=== PATIENT | male | born 1965 | race Two or more races ===

== ENCOUNTER 2019-05-17 18:47 | Inpatient (IN) | payer OTHER ==
[~2019-05-17] VITALS: Ht 175.3 cm; Wt 73.0 kg
[2019-05-17 19:06] VITALS: Ht 175.3 cm; Wt 73.0 kg
[2019-05-17 20:04] LABS: PLATELET COUNT 457 x10^3mcL (130-400); RED CELL DISTRIBUTION WIDTH 23.3 % (11.5-14.5)
[2019-05-17 20:27] LABS: BAND NEUTROPHIL 1 % (0-10); BASOPHIL 0 % (0-2); CALCIUM 7.8 mg/dL (8.5-10.1); CARBON DIOXIDE 29.2 mmol/L (21-32); CHLORIDE SERUM 107 mmol/L (98-107); CREATININE SERUM 0.8 mg/dL (0.7-1.3); GFR1 > 60 mL/min; GLUCOSE SERUM 103 mg/dL (74-106); MONOCYTE 2 % (0-7); POTASSIUM SERUM 3.5 mmol/L (3.5-5.1); SEGMENTED NEUTROPHILS 84 % (37-75); SODIUM SERUM 145 mmol/L (136-145); rbc morphology (normal/abnorm) ABNORMAL (NORMAL)
[2019-05-17 20:36] LABS: ALBUMIN 3.5 g/dL (3.4-5.0); ALKALINE PHOSPHATASE 65 U/L (46-116); ALT/SGPT 46 U/L (16-63); AST/SGOT 36 U/L (15-37); BILIRUBIN TOTAL 0.19 mg/dL (0.20-1.00); TOTAL PROTEIN, SERUM 7.3 g/dL (6.4-8.2)
[2019-05-18 00:40] VITALS: BP 115/70
[2019-05-18 01:01] LABS: RED BLOOD CELLS 3.52 M/mm3 (4.52-5.90)
[2019-05-18 01:08] LABS: IRON 8 ug/dL (65-170); TOTAL IRON BINDING CAPACITY 512 ug/dL (250-450)
[2019-05-18 06:01] VITALS: BP 117/72
[2019-05-18 07:14] LABS: PLATELET COUNT 368 x10^3mcL (130-400)
[2019-05-18 07:41] LABS: CALCIUM 7.9 mg/dL (8.5-10.1); CARBON DIOXIDE 24.9 mmol/L (21-32); CHLORIDE SERUM 106 mmol/L (98-107); CREATININE SERUM 0.7 mg/dL (0.7-1.3); GFR1 > 60 mL/min; GLUCOSE SERUM 100 mg/dL (74-106); POTASSIUM SERUM 3.4 mmol/L (3.5-5.1); SODIUM SERUM 142 mmol/L (136-145)
[2019-05-18 08:30] VITALS: BP 110/67
[2019-05-18 09:05] LABS: RED CELL DISTRIBUTION WIDTH 27.2 % (11.5-14.5)
[2019-05-18 11:41] LABS: BAND NEUTROPHIL 0 % (0-10); BASOPHIL 0 % (0-2); MONOCYTE 7 % (0-7); SEGMENTED NEUTROPHILS 77 % (37-75)
[2019-05-18 11:42] LABS: rbc morphology (normal/abnorm) NORMAL (NORMAL)
[2019-05-18 12:44] VITALS: BP 139/88
[2019-05-18 15:59] VITALS: BP 133/79
[2019-05-18 17:13] LABS: PLATELET COUNT 400 x10^3mcL (130-400)
[2019-05-18 17:29] LABS: RED CELL DISTRIBUTION WIDTH 27.1 % (11.5-14.5)
[2019-05-18 18:08] LABS: SEGMENTED NEUTROPHILS 70 % (37-75)
[2019-05-18 18:09] LABS: MONOCYTE 10 % (0-7); ovalocyte/elliptocyte 1+; rbc morphology (normal/abnorm) ABNORMAL (NORMAL)
[2019-05-18 20:49] VITALS: BP 158/83
[2019-05-19 05:33] VITALS: BP 140/79
[2019-05-19 08:28] LABS: PLATELET COUNT 372 x10^3mcL (130-400)
[2019-05-19 08:37] LABS: RED CELL DISTRIBUTION WIDTH 27.2 % (11.5-14.5)
[2019-05-19 08:41] VITALS: BP 138/77
[2019-05-19 10:08] LABS: CARBON DIOXIDE 23.6 mmol/L (21-32); CHLORIDE SERUM 104 mmol/L (98-107); CREATININE SERUM 0.7 mg/dL (0.7-1.3); GFR1 > 60 mL/min; GLUCOSE SERUM 94 mg/dL (74-106); MAGNESIUM 1.8 mg/dL (1.8-2.4); PHOSPHOROUS 3.5 mg/dL (2.5-4.9); POTASSIUM SERUM 3.8 mmol/L (3.5-5.1); SODIUM SERUM 137 mmol/L (136-145)
[2019-05-19 10:40] LABS: BAND NEUTROPHIL 6 % (0-10); BASOPHIL 1 % (0-2); MONOCYTE 1 % (0-7); SEGMENTED NEUTROPHILS 78 % (37-75)
[2019-05-19 10:43] LABS: PLATELET MORPHOLOGY PLATELETS INCREASED; rbc morphology (normal/abnorm) ABNORMAL (NORMAL)
[2019-05-19 12:27] VITALS: BP 138/86
[2019-05-19 16:13] LABS: AMPHETAMINE QUAL UR NONE DETECTED (See below)
[2019-05-19 16:43] VITALS: BP 122/78
[2019-05-19 18:31] LABS: PLATELET COUNT 354 x10^3mcL (130-400)
[2019-05-19 18:34] LABS: RED CELL DISTRIBUTION WIDTH 27.7 % (11.5-14.5)
[2019-05-19 18:55] LABS: BAND NEUTROPHIL 4 % (0-10); MONOCYTE 4 % (0-7); SEGMENTED NEUTROPHILS 73 % (37-75); rbc morphology (normal/abnorm) ABNORMAL (NORMAL)
[2019-05-19 18:57] LABS: PLATELET MORPHOLOGY PLATELETS NORMAL
[2019-05-19 20:44] VITALS: BP 130/80
[2019-05-20 05:09] VITALS: BP 125/77
[2019-05-20 06:34] LABS: PLATELET COUNT 367 x10^3mcL (130-400)
[2019-05-20 07:14] LABS: CALCIUM 8.6 mg/dL (8.5-10.1); CARBON DIOXIDE 27.6 mmol/L (21-32); CHLORIDE SERUM 102 mmol/L (98-107); CREATININE SERUM 0.8 mg/dL (0.7-1.3); GFR1 > 60 mL/min; GLUCOSE SERUM 92 mg/dL (74-106); MAGNESIUM 1.9 mg/dL (1.8-2.4); PHOSPHOROUS 4.1 mg/dL (2.5-4.9); POTASSIUM SERUM 3.7 mmol/L (3.5-5.1); SODIUM SERUM 136 mmol/L (136-145)
[2019-05-20 08:21] LABS: RED CELL DISTRIBUTION WIDTH 27.8 % (11.5-14.5)
[2019-05-20 09:07] VITALS: BP 113/74
[2019-05-20 12:13] LABS: BAND NEUTROPHIL 5 % (0-10); MONOCYTE 4 % (0-7); SEGMENTED NEUTROPHILS 74 % (37-75)
[2019-05-20 12:14] LABS: rbc morphology (normal/abnorm) ABNORMAL (NORMAL)
[2019-05-20 12:15] LABS: PLATELET MORPHOLOGY PLATELETS NORMAL
[2019-05-20 18:00] VITALS: BP 116/80
[2019-05-20 20:51] VITALS: BP 120/77
[2019-05-21 05:50] VITALS: BP 135/80
[2019-05-21 06:45] LABS: CALCIUM 8.4 mg/dL (8.5-10.1); CARBON DIOXIDE 26.8 mmol/L (21-32); CHLORIDE SERUM 102 mmol/L (98-107); CREATININE SERUM 0.8 mg/dL (0.7-1.3); GFR1 > 60 mL/min; GLUCOSE SERUM 90 mg/dL (74-106); PHOSPHOROUS 4.1 mg/dL (2.5-4.9); POTASSIUM SERUM 3.7 mmol/L (3.5-5.1); SODIUM SERUM 135 mmol/L (136-145)
[2019-05-21 07:03] LABS: PLATELET COUNT 340 x10^3mcL (130-400)
[2019-05-21 07:22] LABS: RED CELL DISTRIBUTION WIDTH 27.9 % (11.5-14.5)
[2019-05-21 08:07] VITALS: BP 118/86
[2019-05-21 09:46] LABS: rbc morphology (normal/abnorm) ABNORMAL (NORMAL)
[2019-05-21 09:47] LABS: MONOCYTE 8 % (0-7); SEGMENTED NEUTROPHILS 67 % (37-75)
[2019-05-21] MEDS ORDERED: BIA500 PO (10:41)
[2019-05-21] MEDS ORDERED: AMO500 PO (10:41)
[2019-05-21] MEDS ORDERED: FER300 PO (10:41)
[2019-05-21] MEDS ORDERED: TRA50 PO (10:42)
[2019-05-21] MEDS ORDERED: PRI20 PO (10:42)
[2019-05-21 11:52] VITALS: BP 141/78
[2019-05-21 12:09] VITALS: BP 141/78
== END 2019-05-21 15:40 | disposition home or self-care (01) | DRG 380 ==
LOC: ED 18:47 → DU 23:08 → MU 05-21 10:13
PROVIDERS: Emergency Medicine; Internal Medicine; Internal Medicine Gastroenterology; ADMIT General Practice
PROC: 30233N1 Transfusion of Nonautologous Red Blood Cells into Peripheral Vein, Percutaneous Approach (ICD-10-PCS; 2019-05-18)
PROC: 0DB68ZX Excision of Stomach, Via Natural or Artificial Opening Endoscopic, Diagnostic (ICD-10-PCS; principal; 2019-05-19 08:00)
PROC: 0DBH8ZZ Excision of Cecum, Via Natural or Artificial Opening Endoscopic (ICD-10-PCS; 2019-05-19 08:00)
DX: K22.10 Ulcer of esophagus without bleeding (principal); G92 Toxic encephalopathy; D62 Acute posthemorrhagic anemia; K21.0 Gastro-esophageal reflux disease with esophagitis; B96.81 Helicobacter pylori [H. pylori] as the cause of diseases classified elsewhere; K44.9 Diaphragmatic hernia without obstruction or gangrene; K26.7 Chronic duodenal ulcer without hemorrhage or perforation; K64.8 Other hemorrhoids; F10.129 Alcohol abuse with intoxication, unspecified; K56.41 Fecal impaction; D12.0 Benign neoplasm of cecum; D50.9 Iron deficiency anemia, unspecified; E83.51 Hypocalcemia; F32.9 Major depressive disorder, single episode, unspecified; K40.90 Unilateral inguinal hernia, without obstruction or gangrene, not specified as recurrent; F17.210 Nicotine dependence, cigarettes, uncomplicated; Z59.0 Homelessness; Z68.23 Body mass index [BMI] 23.0-23.9, adult; Y90.8 Blood alcohol level of 240 mg/100 ml or more
CPT/HCPCS: 43235; 45378; C9113; G0378; G0480; J1200; J1610; J1885; J2060; J2250; J2310; J2916; J3010; J3490; J7050; P9016; Q0092; Q0163

== ENCOUNTER 2019-06-22 22:07 | Inpatient (IN) | payer OTHER ==
[~2019-06-22] VITALS: Ht 175.3 cm; Wt 68.9 kg
[~2019-06-22 22:07] MED LIST: AMO500 PO; BIA500 PO; FER300 PO; PRI20 PO; TRA50 PO
[2019-06-22 22:10] VITALS: Ht 175.3 cm; Wt 68.9 kg
[2019-06-22 23:15] LABS: PLATELET COUNT 188 x10^3mcL (130-400)
[2019-06-22 23:17] LABS: ALBUMIN 3.2 g/dL (3.4-5.0); ALKALINE PHOSPHATASE 96 U/L (46-116); ALT/SGPT 47 U/L (16-63); AST/SGOT 55 U/L (15-37); BILIRUBIN TOTAL 0.2 mg/dL (0.20-1.00); CALCIUM 8.3 mg/dL (8.5-10.1); CHLORIDE SERUM 104 mmol/L (98-107); CREATININE SERUM 0.8 mg/dL (0.7-1.3); GFR1 > 60 mL/min; GLUCOSE SERUM 123 mg/dL (74-106); SODIUM SERUM 143 mmol/L (136-145); TOTAL PROTEIN, SERUM 6.7 g/dL (6.4-8.2)
[2019-06-22 23:18] LABS: POTASSIUM SERUM 2.7 mmol/L (3.5-5.1)
[2019-06-22 23:21] LABS: RED CELL DISTRIBUTION WIDTH 30.1 % (11.5-14.5)
[2019-06-22 23:31] LABS: SEGMENTED NEUTROPHILS 65 % (37-75)
[2019-06-22 23:32] LABS: MONOCYTE 4 % (0-7); PLATELET MORPHOLOGY PLATELETS NORMAL; rbc morphology (normal/abnorm) ABNORMAL (NORMAL)
[2019-06-23 03:41] LABS: PLATELET COUNT 204 x10^3mcL (130-400)
[2019-06-23 03:45] LABS: CALCIUM 7.9 mg/dL (8.5-10.1); CARBON DIOXIDE 27.1 mmol/L (21-32); CHLORIDE SERUM 110 mmol/L (98-107); CREATININE SERUM 0.7 mg/dL (0.7-1.3); GFR1 > 60 mL/min; GLUCOSE SERUM 94 mg/dL (74-106); MAGNESIUM 1.9 mg/dL (1.8-2.4); POTASSIUM SERUM 3.9 mmol/L (3.5-5.1); SODIUM SERUM 147 mmol/L (136-145)
[2019-06-23 03:48] LABS: RED CELL DISTRIBUTION WIDTH 25.5 % (11.5-14.5)
[2019-06-23 04:04] LABS: SEGMENTED NEUTROPHILS 50 % (37-75)
[2019-06-23 04:05] LABS: MONOCYTE 5 % (0-7); PLATELET MORPHOLOGY PLATELETS NORMAL; rbc morphology (normal/abnorm) ABNORMAL (NORMAL)
[2019-06-23 06:00] LABS: PHOSPHOROUS 4.4 mg/dL (2.5-4.9)
[2019-06-23 06:02] LABS: microscopic required? NO
[2019-06-23 06:15] LABS: UA SPECIFIC GRAVITY <=1.005 (1.005-1.035); urine erythrocyte NEGATIVE (NEGATIVE)
[2019-06-23 06:25] LABS: AMPHETAMINE QUAL UR NONE DETECTED (See below)
[2019-06-23 06:26] VITALS: BP 114/78
[2019-06-23 07:54] LABS: FREE T4 0.87 ng/dL (0.76-1.46); FREE THYROXINE INDEX 2.2 ug/dL (1.4-4.5)
[2019-06-23 07:56] LABS: TOTAL IRON BINDING CAPACITY 351 ug/dL (250-450)
[2019-06-23 08:03] LABS: IRON 7 ug/dL (65-170)
[2019-06-23 08:28] LABS: T3 TOTAL 0.94 ng/mL
[2019-06-23 08:39] VITALS: BP 113/73
[2019-06-23 17:13] VITALS: BP 115/70
[2019-06-23 21:11] VITALS: BP 145/82
[2019-06-24 05:52] VITALS: BP 151/86
[2019-06-24 07:17] LABS: PLATELET COUNT 166 x10^3mcL (130-400)
[2019-06-24 07:33] LABS: CALCIUM 8.5 mg/dL (8.5-10.1); CARBON DIOXIDE 31.3 mmol/L (21-32); CHLORIDE SERUM 103 mmol/L (98-107); CREATININE SERUM 0.6 mg/dL (0.7-1.3); GFR1 > 60 mL/min; GLUCOSE SERUM 95 mg/dL (74-106); POTASSIUM SERUM 3.2 mmol/L (3.5-5.1); SODIUM SERUM 141 mmol/L (136-145)
[2019-06-24 08:21] LABS: RED CELL DISTRIBUTION WIDTH 29.2 % (11.5-14.5)
[2019-06-24 08:48] VITALS: BP 147/85
[2019-06-24 09:20] LABS: BAND NEUTROPHIL 0 % (0-10); MONOCYTE 13 % (0-7); SEGMENTED NEUTROPHILS 65 % (37-75)
[2019-06-24 09:21] LABS: BASOPHIL 0 % (0-2); PLATELET MORPHOLOGY PLATELETS INCREASED
[2019-06-24 09:22] LABS: rbc morphology (normal/abnorm) ABNORMAL (NORMAL)
[2019-06-24 13:58] VITALS: BP 134/75
[2019-06-24 16:25] VITALS: BP 141/71
[2019-06-24 21:48] VITALS: BP 130/74
[2019-06-25 05:44] VITALS: BP 133/79
[2019-06-25 07:26] LABS: CALCIUM 8.6 mg/dL (8.5-10.1); CARBON DIOXIDE 28.9 mmol/L (21-32); CHLORIDE SERUM 102 mmol/L (98-107); CREATININE SERUM 0.6 mg/dL (0.7-1.3); GFR1 > 60 mL/min; GLUCOSE SERUM 93 mg/dL (74-106); MAGNESIUM 1.8 mg/dL (1.8-2.4); POTASSIUM SERUM 3.7 mmol/L (3.5-5.1); SODIUM SERUM 139 mmol/L (136-145)
[2019-06-25 07:27] LABS: PLATELET COUNT 198 x10^3mcL (130-400)
[2019-06-25 08:08] LABS: RED CELL DISTRIBUTION WIDTH 28.2 % (11.5-14.5)
[2019-06-25 09:04] VITALS: BP 120/77
[2019-06-25] MEDS ORDERED: FER300 PO (09:06)
[2019-06-25] MEDS ORDERED: FLO4 PO (09:12)
[2019-06-25] MEDS ORDERED: PRI20 PO (09:13)
[2019-06-25] MEDS ORDERED: MVIL PO (09:14)
[2019-06-25] MEDS ORDERED: FOL1 PO (09:14)
[2019-06-25] MEDS ORDERED: THI100 PO (09:14)
[2019-06-25 09:24] LABS: SEGMENTED NEUTROPHILS 52 % (37-75)
[2019-06-25 09:25] LABS: MONOCYTE 4 % (0-7)
[2019-06-25 09:28] LABS: rbc morphology (normal/abnorm) ABNORMAL (NORMAL)
[2019-06-25] MEDS ORDERED: LAC30L PO (10:58)
[2019-06-25 12:32] VITALS: BP 123/83
[2019-06-25 14:35] VITALS: BP 123/83
== END 2019-06-25 17:30 | disposition home or self-care (01) | DRG 380 ==
LOC: ED 22:07 → DU 06-23 04:45
PROVIDERS: Emergency Medicine; Internal Medicine; Internal Medicine Gastroenterology; ADMIT Family Medicine
PROC: 0DB68ZX Excision of Stomach, Via Natural or Artificial Opening Endoscopic, Diagnostic (ICD-10-PCS; principal; 2019-06-23 10:30)
DX: K22.11 Ulcer of esophagus with bleeding (principal); E43 Unspecified severe protein-calorie malnutrition; D62 Acute posthemorrhagic anemia; E87.0 Hyperosmolality and hypernatremia; F10.239 Alcohol dependence with withdrawal, unspecified; M94.0 Chondrocostal junction syndrome [Tietze]; E87.6 Hypokalemia; F10.229 Alcohol dependence with intoxication, unspecified; K26.9 Duodenal ulcer, unspecified as acute or chronic, without hemorrhage or perforation; M25.511 Pain in right shoulder; G89.29 Other chronic pain; Z59.0 Homelessness; Z68.23 Body mass index [BMI] 23.0-23.9, adult; Y90.8 Blood alcohol level of 240 mg/100 ml or more
CPT/HCPCS: 43235; 83880; 84439; 85378; C9113; G0378; G0480; J1200; J1610; J2060; J2250; J2270; J2310; J2916; J3010; J3411; J3480; J3490; J7030; J7040

== ENCOUNTER 2019-06-26 14:16 | Emergency (ER) | payer OTHER ==
[~2019-06-26] VITALS: Ht 175.3 cm; Wt 74.8 kg
[~2019-06-26 14:16] MED LIST changes: +FLO4 PO; +FOL1 PO; +LAC30L PO; +MVIL PO; +THI100 PO
[2019-06-26 14:21] VITALS: Ht 175.3 cm; Wt 74.8 kg
[2019-06-26 14:48] LABS: PLATELET COUNT 232 x10^3mcL (130-400)
[2019-06-26 14:52] LABS: RED CELL DISTRIBUTION WIDTH 29.2 % (11.5-14.5)
[2019-06-26 14:55] LABS: CALCIUM 8.3 mg/dL (8.5-10.1); CARBON DIOXIDE 26.8 mmol/L (21-32); CHLORIDE SERUM 108 mmol/L (98-107); GFR1 > 60 mL/min; GLUCOSE SERUM 118 mg/dL (74-106); POTASSIUM SERUM 3.7 mmol/L (3.5-5.1); SODIUM SERUM 146 mmol/L (136-145)
[2019-06-26 15:00] LABS: ALBUMIN 3.2 g/dL (3.4-5.0); ALKALINE PHOSPHATASE 88 U/L (46-116); ALT/SGPT 40 U/L (16-63); AST/SGOT 39 U/L (15-37); BILIRUBIN TOTAL 0.2 mg/dL (0.20-1.00); TOTAL PROTEIN, SERUM 7.1 g/dL (6.4-8.2)
[2019-06-26 15:23] LABS: BAND NEUTROPHIL 0 % (0-10); BASOPHIL 0 % (0-2); MONOCYTE 14 % (0-7); SEGMENTED NEUTROPHILS 52 % (37-75); rbc morphology (normal/abnorm) ABNORMAL (NORMAL)
[2019-06-26 16:02] LABS: AMPHETAMINE QUAL UR NONE DETECTED (See below)
[2019-06-26 17:04] VITALS: BP 105/65
== END 2019-06-26 17:04 | disposition home or self-care (01) ==
LOC: ED 14:16
PROVIDERS: Specialist
DX: F10.129 Alcohol abuse with intoxication, unspecified (principal); Y90.9 Presence of alcohol in blood, level not specified; D53.9 Nutritional anemia, unspecified; Z59.0 Homelessness
CPT/HCPCS: 36415

== ENCOUNTER 2019-07-18 16:21 | Emergency (ER) | payer OTHER ==
[~2019-07-18] VITALS: Ht 175.3 cm; Wt 74.8 kg
[2019-07-18 16:26] VITALS: Ht 175.3 cm; Wt 74.8 kg
[2019-07-18 17:33] VITALS: BP 141/95
== END 2019-07-18 17:33 | disposition other institution (70) ==
LOC: ED 16:21
DX: Z02.89 Encounter for other administrative examinations (principal)

== ENCOUNTER 2019-07-21 11:45 | Emergency (ER) | payer OTHER ==
[~2019-07-21] VITALS: Ht 175.3 cm; Wt 77.1 kg
[2019-07-21 12:22] VITALS: Ht 175.3 cm; Wt 77.1 kg
[2019-07-21 15:00] VITALS: BP 118/84
== END 2019-07-21 15:38 | disposition home or self-care (01) ==
LOC: ED 11:45
DX: F10.129 Alcohol abuse with intoxication, unspecified (principal); Z86.2 Personal history of diseases of the blood and blood-forming organs and certain disorders involving the immune mechanism
CPT/HCPCS: J1630; J2405